=== PATIENT | male | born 1935 | race Caucasian/White ===

== ENCOUNTER 2018-10-10 20:23 | Inpatient (IN) ==
--- NOTE | 2018-10-10 22:03 | Diag Imaging Result Doc PS360 ---
EXAM: CT HEAD W/O CONTRAST 10/10/2018 HISTORY: possible seizure TECHNIQUE: This exam was performed using automated exposure control, adjustment of mA or kV according to patient size, and/or use of iterative reconstruction technique. COMMENT: There are patchy lucencies in both hemispheres in the periventricular and subcortical white matter. There is no evidence of mass effect bleed or abnormal extra-axial fluid collection. Compared to the previous study of 11/20/2015 the appearance the brain is similar. The visualized paranasal sinuses are clear. The calvarium is intact. IMPRESSION: No acute intracranial disease. Chronic ischemic microvascular white matter disease. Electronically signed by Gareth Cortez 10/10/2018 10:00 PM
[2018-10-10] MEDS ORDERED: APRESOLINE IV ONE (22:06)
--- NOTE | 2018-10-10 22:20 | Diag Imaging Result Doc PS360 ---
EXAM: CT ABDOMEN/PELVIS W/O CONTRAST 10/10/2018 HISTORY: distension TECHNIQUE: This exam was performed using automated exposure control, adjustment of mA or kV according to patient size, and/or use of iterative reconstruction technique. COMMENT: There are no previous abdominal studies available for comparison. Where possible, the examination is compared with the previous CT of the chest dated 01/18/2015. There are platelike opacities in the inferior lingula and both lower lobes with some air bronchograms and bronchiectasis present particularly in the left posterior costophrenic sulcus. These findings were largely present at the time the previous chest CT. There is massive gaseous dilatation of the colon. There is a large amount of stool present in the right colon. There may be multiple polypoid mucosal lesions present in the colon. This was apparent on the previous chest CT as well as the gaseous dilatation and constipation in as much as the upper abdomen was included on the study. There is a 2 mm calculus in the lower pole of the left kidney. There is no evidence of nephrolithiasis on the right. There is some fullness of the left collecting system and there is a cortical cyst present in the upper pole. This was present on the previous study. There is no apparent ureteral stone. The prostate is enlarged. The urinary bladder is not distended. There is no evidence of free fluid. The small bowel is not distended. Some gas and stool is present in the colon. There is a diverticulum arising from the right dome of the bladder. The appendix is not clearly identified but there is no evidence of appendicitis. There has been internal fixation of the left femur. There are some degenerative disc changes in the lumbar spine. IMPRESSION: Chronic constipation and gaseous dilatation of the colon. The possibility of colonic polyposis cannot be excluded. Electronically signed by Gareth Cortez 10/10/2018 10:18 PM
[2018-10-10 22:47] LABS: URINE SOURCE CLEAN CATCH
[2018-10-10 22:53] LABS: BASO# 0.07 X1000 (0.0-0.2); EOS# 0.16 X1000 (0.0-0.7); EOS% 2.2 % (0.0-10.0); HEMATOCRIT 46.7 % (42.0-52.0); HEMOGLOBIN 14.9 g/dL (14.0-18.0); IMM GRAN# 0.02 X1000 (0.0-0.04); IMM GRAN% 0.3 % (0.0-0.5); LYMPH# 0.91 X1000 (1.2-3.4); LYMPH% 12.7 % (20.5-51.1); MCH 29.7 PG (27-31); MCHC 31.9 g/dL (33-37); MCV 93.2 FL (81-99); MONO# 0.57 X1000 (0.11-0.59); MONO% 7.9 % (1.7-9.3); MPV 11.8 FL (7.4-10.4); NEUT# 5.45 X1000 (1.4-6.5); NEUT% 75.9 % (42.2-75.2); PLT 116 X1000 (130-400); RBC 5.01 XMIL (4.7-6.1); RDW 14.5 % (11.5-14.5); WBC 7.18 X1000 (4.8-10.8)
[2018-10-10 22:55] LABS: BILIRUBIN URINE NEGATIVE (NEGATIVE); BLOOD URINE NEGATIVE (NEGATIVE); COLOR STRAW; GLUCOSE URINE NEGATIVE (NEGATIVE); KETONE URINE NEGATIVE (NEGATIVE); LEUKOCYTES URINE NEGATIVE (NEGATIVE); NITRITE URINE NEGATIVE (NEGATIVE); PH URINE 6.5; PROTEIN URINE NEGATIVE (NEGATIVE); TURBIDITY URINE CLEAR (CLEAR); UROBILINOGEN URINE NORMAL (NORMAL)
[2018-10-10 22:56] LABS: UR EPITHELIAL CELLS <10 /HPF (<10); URINE BACTERIA NEGATIVE /HPF; URINE RBC <10 /HPF (<10); URINE WBC <10 /HPF (<10)
[2018-10-10 23:07] LABS: AGAP 12; ALB/GLOB RATIO 1.4; ALBUMIN 3.9 g/dL (3.5-5.0); ALKALINE PHOSPHATASE 76 U/L (32-122); BUN 18 mg/dL (8-22); CALCIUM 8.7 mg/dL (8.8-10.2); CHLORIDE 102 mmol/L (98-107); COSMO 288; CREATININE 0.9 mg/dL (0.7-1.2); ESTIMATED GFR > 60; GLUCOSE 82 mg/dL (70-104); GOT 15 U/L (10-34); GPT < 5 U/L (10-44); POTASSIUM 3.9 mmol/L (3.5-5.1); SODIUM 144 mmol/L (136-145); TCO2 30 mmol/L (25-35); TOTAL BILIRUBIN 0.35 mg/dL (0.20-1.00); TOTAL PROTEIN 6.6 g/dL (6.3-8.3)
--- NOTE | 2018-10-10 23:50 | PROVIDER DOCUMENTATION ---
This chart was entered by Mary Sainz Scribe, acting as scribe for Tejas Sarkar MD. HPI-Neurological Disorder - General Chief Complaint: Seizure Stated Complaint: POSS SEIZURE Time Seen by Provider: 10/10/18 20:52 Source: patient, family Allergies/Adverse Reactions: Patient Allergies Allergy/AdvReac Type Severity Reaction Status Date / Time tetanus and diphtheria Allergy ANAPHYLAXIS Verified 10/11/18 00:14 toxoids [tetanus & diphtheria toxoids] Home Medications: Home Medication List Medication Instructions Recorded Confirmed Last Taken Type Carbidopa/Levodopa [Carbidopa-Levo 1 tab PO DIRECTED 01/18/15 10/11/18 11/20/15 16:30 History 25-100 Tab] Losartan/Hctz [Hyzaar 50/12.5 mg] 1 each PO DAILY PRN 01/18/15 10/11/18 11/20/15 08:00 History Carbidopa/Levodopa [Sinemet 25/100] 2 each PO 0600 #0 tablet 04/15/15 10/11/18 11/20/15 06:00 Rx Carbidopa/Levodopa [Sinemet 25/100] 1 each PO WLUNCH 11/20/15 10/11/18 11/20/15 11:00 History Omeprazole [Prilosec] 1 cap PO QAM 10/11/18 10/11/18 Unknown History Simethicone [Gas-X] 1 cap PO AC 10/11/18 10/11/18 Unknown History Solifenacin [Vesicare] 1 tab PO QAM 10/11/18 10/11/18 Unknown History - History of Present Illness-Neuro Nature of Presenting Problem: 83 yom presents to ED by way of EMS for 'seizure type' activity that happened just prior to EMS being called. Pt has HX of Parkinsons, TIA and HTN. Pt daughter and at bedside and states while he was sitting and talking to , his arms started shaking more than normal. Pt denies 0 LOC. EMS states pt was alert and oriented when they arrived. Pt b/p is 221/130 upon exan and he has a distended abdomen but denies pain. Review of Systems - Adult - REVIEW OF SYSTEMS - ADULT Constitutional: reports: see HPI. denies: chills, fever Eyes: reports: no symptoms reported Ears, Nose, Mouth & Throat: reports: no symptoms reported Cardiovascular: reports: no symptoms reported Respiratory: reports: no symptoms reported Gastrointestinal: reports: no symptoms reported Genitourinary: reports: no symptoms reported Musculoskeletal: reports: no symptoms reported Integumentary: reports: no symptoms reported Neurological: reports: see HPI, seizure (arms were shaking more than normal), tremors Psychiatric: reports: no symptoms reported Endocrine: reports: no symptoms reported Hematologic/Lymphatic: reports: no symptoms reported Allergic/Immunologic: reports: no symptoms reported All Other Systems: Reviewed and Negative Past History - Adult - PAST MEDICAL HISTORY-ADULT Review of Records: reports: Old Records Reviewed, Nursing Assessment Review, Medications Reviewed, Social history reviewed & non-contributory. 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), Parkinson's, TIA Psychiatric: reports: denies history Endocrine/Immune: reports: denies history Other Conditions: reports: skin disorder (Cancer) - PRIOR SURGERIES/PROCEDURES Surgical/Procedure History: reports: appendectomy, cholecystectomy (TURP, cataract removal,), tonsillectomy, hernia repair, orthopedic (extremity) (ORIF right ankle), other (TURP, cataract removal) - PRIOR HOSPITALIZATIONS Prior Hospitalizations: reports: for other non-related - IMMUNIZATION STATUS Childhood Immunizations: See Nurse Assessment Flu Vaccine: See Nurse Assessment - FAMILY HISTORY Family History: reviewed, not pertinent Physical Exam- Neurological - Physical Exam-Neuro Initial Vital Signs Reviewed: Yes General Appearance: appears well, alert, no apparent distress. negative: anxious, combative Eye Exam: bilateral eye: normal inspection, PERRL HENMT: normocephalic/atraumatic, moist mucous membranes. negative: frontal tenderness, maxillary tenderness Head Injury: no evidence of injury. negative: active bleeding Neck: non-tender, supple Respiratory: chest non-tender, lungs clear, normal breath sounds. 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 negative: abnormal speech, facial droop, facial weakness Integumentary: normal color, normal turgor, warm/dry Psych/Mental Status: normal mood/affect, normal thought content Progress - PLAN OF CARE/RESULTS Progress/Plan/Lab Results: Vital Signs - 8 hr 10/10/18 20:53 10/10/18 20:56 10/10/18 21:02 Temperature 98.5 F Pulse Rate 91 H 92 H 88 Respiratory Rate 17 18 18 Blood Pressure 221/130 221/130 215/146 O2 Sat by Pulse Oximetry 96 100 10/10/18 21:17 10/10/18 21:40 10/10/18 21:47 Temperature Pulse Rate 81 75 77 Respiratory Rate 14 16 19 Blood Pressure 181/123 180/110 183/113 O2 Sat by Pulse Oximetry 96 95 95 10/10/18 22:02 10/10/18 22:17 10/10/18 22:32 Temperature Pulse Rate 71 86 84 Respiratory Rate 17 16 20 Blood Pressure 192/111 193/120 174/114 O2 Sat by Pulse Oximetry 95 94 L 95 10/10/18 22:47 10/10/18 22:51 Temperature Pulse Rate 88 79 Respiratory Rate 21 16 Blood Pressure 194/102 146/107 O2 Sat by Pulse Oximetry 93 L 95 Laboratory Results - last 24 hr 10/10/18 10/10/18 10/10/18 21:00 21:00 22:30 WBC 7.18 RBC 5.01 Hgb 14.9 Hct 46.7 MCV 93.2 MCH 29.7 MCHC 31.9 L RDW Std Deviation 14.5 Plt Count 116 L MPV 11.8 H Immature Gran % (Auto) 0.3 Neut % (Auto) 75.9 H Lymph % (Auto) 12.7 L Dickinson % (Auto) 7.9 Eos % (Auto) 2.2 Baso % (Auto) 1.0 H Immature Gran # (Auto) 0.02 Neut # (Auto) 5.45 Lymph # (Auto) 0.91 L Dickinson # (Auto) 0.57 Eos # (Auto) 0.16 Baso # (Auto) 0.07 Sodium 144 Potassium 3.9 Chloride 102 Carbon Dioxide 30 Anion Gap 12 BUN 18 Creatinine 0.9 Estimated GFR/1.73 m2 > 60 BUN/Creatinine Ratio 20 Glucose 82 Calculated Osmolality 288 Calcium 8.7 L Total Bilirubin 0.35 AST 15 ALT < 5 L Alkaline Phosphatase 76 Total Protein 6.6 Albumin 3.9 Globulin 2.7 Albumin/Globulin Ratio 1.4 Urine Source CLEAN CATCH Urine Color STRAW Urine Turbidity CLEAR Urine pH 6.5 Ur Specific Sandwich 1.000 Urine Protein NEGATIVE Ur Glucose (Stick) NEGATIVE Ur Ketones (Stick) NEGATIVE Urine Blood NEGATIVE Urine Nitrite NEGATIVE Urine Bilirubin NEGATIVE Urobilinogen Dipstick NORMAL Urine Leukocytes NEGATIVE Urine WBC (Auto) <10 Urine RBC (Auto) <10 U Epithel Cells (Auto) <10 Urine Bacteria (Auto) NEGATIVE Orders Category Date Time Status Admit - [facility] Routine AdmDCTranf 10/11/18 00:05 Active Activity - Strict Bedrest ORDERED Care 10/11/18 00:05 Active Apply Mechanical Device [QM] ORDERED Care 10/11/18 00:05 Active Intake and Output-Strict ORDERED Care 10/11/18 00:05 Active Update & Confirm Home Medicati ROUTINE Care 10/11/18 00:07 Active Vital Signs Order Q 8-HR ASSESS Care 10/11/18 00:05 Active Z-Document. for Tele Applied ORDERED Care 10/11/18 00:06 Active NPO Diet 10/11/18 00:[address] ABDOMEN/PELVIS W/O CONTRAST [CT] Stat Exams 10/10/18 21:[address] HEAD W/O CONTRAST [CT] Stat Exams 10/10/18 20:53 Completed BASIC METABOLIC PANEL [CHEM] Routine Lab 10/11/18 06:00 Uncollected CBC WITH ELECTRONIC DIFF [HEME] Stat Lab 10/10/18 21:00 Completed COMPREHENSIVE METABOLIC PANEL [CHEM] Stat Lab 10/10/18 21:00 Completed TSH Routine Lab 10/11/18 06:00 Uncollected URINALYSIS [URINALYSIS] Stat Lab 10/10/18 22:30 Completed Acetaminophen [Tylenol] Med 10/11/18 00:05 Active 650 mg PO Q6H PRN PRN Hydralazine [Apresoline] Med 10/10/18 22:06 Discontinued 10 mg IV NOW ONE Hydralazine [Apresoline] Med 10/11/18 00:08 Active 10 mg IV Q6H PRN PRN Ondansetron [Zofran] Med 10/11/18 00:05 Active 4 mg IV Q4H PRN PRN Telemetry [OM.EQ] Routine Oth 10/11/18 00:05 Active EKG [EKG] Routine Ther 10/11/18 08:00 Ordered EKG [EKG] Stat Ther 10/10/18 20:53 Ordered Transfer/Admit Order [TRANSFER] Routine Transfer 10/11/18 00:09 Ordered At recheck pt noted that he was feeling better and agreed to be admitted. Result Diagrams: 10/10/18 21:00 10/10/18 21:00 - CT/MRI 1 CT Study: Head Impression: See EMR Report ( EXAM: CT HEAD W/O CONTRAST 10/10/2018 HISTORY: possible seizure TECHNIQUE: This exam was performed using automated exposure control, adjustment of mA or kV according to patient size, and/or use of iterative reconstruction technique. COMMENT: There are patchy lucencies in both hemispheres in the periventricular and subcortical white matter. There is no evidence of mass effect bleed or abnormal extra-axial fluid collection. Compared to the previous study of 11/20/2015 the appearance the brain is similar. The visualized paranasal sinuses are clear. The calvarium is intact. IMPRESSION: No acute intracranial disease. Chronic ischemic microvascular white matter disease. Electronically signed by Gareth Cortez 10/10/2018 10:00 PM 10/10/182199 Interpreting Physician: Gareth Cortez MD Dictated Date/Time: 10/10/182158 cc: Tejas Sarkar MD; Sabino Kwong MD) 2 CT Study: Abdomen, Pelvis Impression: See EMR Report ( EXAM: CT ABDOMEN/PELVIS W/O CONTRAST 10/10/2018 HISTORY: distension TECHNIQUE: This exam was performed using automated exposure control, adjustment of mA or kV according to patient size, and/or use of iterative reconstruction technique. COMMENT: There are no previous abdominal studies available for comparison. Where possible, the examination is compared with the previous CT of the chest dated 01/18/2015. There are platelike opacities in the inferior lingula and both lower lobes with some air bronchograms and bronchiectasis present particularly in the left posterior costophrenic sulcus. These findings were largely present at the time the previous chest CT. There is massive gaseous dilatation of the colon. There is a large amount of stool present in the right colon. There may be multiple polypoid mucosal lesions present in the colon. This was apparent on the previous chest CT as well as the gaseous dilatation and constipation in as much as the upper abdomen was included on the study. There is a 2 mm calculus in the lower pole of the left kidney. There is no evidence of nephrolithiasis on the right. There is some fullness of the left collecting system and there is a cortical cyst present in the upper pole. This was present on the previous study. There is no apparent ureteral stone. The prostate is enlarged. The urinary bladder is not distended. There is no evidence of free fluid. The small bowel is not distended. Some gas and stool is present in the colon. There is a diverticulum arising fr om the right dome of the bladder. The appendix is not clearly identified but there is no evidence of appendicitis. There has been internal fixation of the left femur. There are some degenerative disc changes in the lumbar spine. IMPRESSION: Chronic constipation and gaseous dilatation of the colon. The possibility of colonic polyposis cannot be excluded. Electronically signed by Gareth Cortez 10/10/2018 10:18 PM 10/10/182217 Interpreting Physician: Gareth Cortez MD Dictated Date/Time: 10/10/182207 cc: Tejas Sarkar MD; Sabino Kwong MD) Departure - Departure Date of Disposition Decision: 10/10/18 Time of Disposition Decision: 00:01 DIAGNOSIS: Seizures, Hypertension Disposition: ADMITTED INPATIENT 09 Certified Medical Emergency: Emergent Condition: Stable - Critical Care Note This patient required my direct & personal management of CC.: No Attestation - Physician/ PATY Attestation Patient care was provided by Advanced Practice Provider:: No The physician spent face to face time with patient:: Yes Advanced Practice Provider documentation review:: Supervising physician onsite and consulted in the evaluation and care of this patient. The physician did have a face to face encounter with the patient. - NIH Stroke Scale Level of Consciousness: 0-Alert LOC Questions (ask month and age): 0-Answers Both Correctly LOC Commands (ask to open & close eyes;make a fist, let go): 0-Obeys Both Correctly Best Gaze (horizontal eye movement): 0-Normal Visual (use finger movement, counting or visual threat): 0-No Visual Loss Facial Palsy (show teeth or raise eyebrows & close eyes tght: 0-Symmetrical Movement Motor Function-left arm: 0-Normal Motor Function-right arm: 0-Normal Motor Function-left le-Normal Motor Function-right le-Normal Limb Ataxia(eqvfdm-grei-iencjy, or heel to peña): 0-No Ataxia Sensory(pin prick to face,arms,trunk,legs-compare side/side): 0-No Ataxia Best Language(name item/read sentence.Ex-Down to Earth): 0-No Aphasia Dysarthria(Pt read words or say words Ex.Mama,Tip-Top,Thanks: 0-Normal Articulation Extinction and Inattention: 0-Normal Modified Hendry Score Criteria: 0-no symptoms This chart was documented by the indicated scribe, (Mary Sainz, Scribe) and accurately reflects the services I performed and decisions made by me, Tejas Sarkar MD, as attested by the provider's signature.
[2018-10-11] MEDS ORDERED: ZOFRAN IV PRN (00:05)
[2018-10-11] MEDS ORDERED: TYLENOL PO PRN (00:05)
[2018-10-11] MEDS ORDERED: DULCOLAX PR ONE (01:57)
[2018-10-11] MEDS ORDERED: HYZAAR 50/12.5 MG PO PRN (04:33)
[2018-10-11] MEDS ORDERED: SINEMET 25/100 PO SCH (04:45)
--- NOTE | 2018-10-11 05:29 | HISTORY AND PHYSICAL ---
PRIMARY CARE PROVIDER: Sabino Kwong. CHIEF COMPLAINT: Seizure-like activity. HISTORY OF PRESENT ILLNESS: Mr. Ca is an 83-year-old male with a longstanding history of advancing Parkinson's disease. I believe he was diagnosed around 14 years ago as well as cerebral ataxia, hyperlipidemia, hypertension, previous TIAs and CVAs. Tonight, he was at home. His and daughter were at bedside. He was talking to them. Apparently, his arms started shaking more than normal. He never lost consciousness. He does not have loss of bowel or bladder. On arrival by EMS a few minutes later, the patient was alert and oriented times 3. However, he was hypertensive and he was brought into the emergency room. On arrival to the emergency room, no additional seizure-type activity was noted by the ER. CT of his head and abdomen were grossly normal I believe showing chronic white matter disease and chronic constipation. However, on arrival the patient's blood pressure was elevated at 221/130. He was given 10 mg of hydralazine. His blood pressure came back within normal limits. As noted, he had no additional seizure-type activity. He will be admitted in observation status for further evaluation and treatment. PAST MEDICAL HISTORY: Pernicious anemia, essential hypertension, hyperlipidemia and Parkinson's. PREVIOUS SURGICAL HISTORY: Appendectomy, cholecystectomy, TURP, tonsillectomy, cataract removal, hernia repair, ORIF of right ankle. SOCIAL HISTORY: , lives with . Daughter is a registered nurse. No alcohol, tobacco or illicit drugs. 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 ALLERGIES: Tetanus and diphtheria toxoid. HOME MEDICATIONS: 1. Hyzaar 50/12.5 mg. 2. Carbidopa/levodopa 25/100 two tablets at breakfast and 1 tablet at lunch. 3. Simethicone 1 daily. 4. VESIcare 1 tablet p.o. q.a.m. 5. Prilosec 20 mg 1 p.o. q.a.m. REVIEW OF SYSTEMS: Fourteen point review of systems conducted with the patient. Pertinent positives listed above in the HPI. All other systems reviewed and found to be negative. PHYSICAL EXAMINATION: VITAL SIGNS: Temperature 98.5, pulse 79, respirations 16, blood pressure 146/107, oxygen saturation 96% on room air. GENERAL: An 83-year-old male lying in the ER stretcher in no acute distress. HEENT: Head is atraumatic, normocephalic. Pupils equal, round, reactive to light. Extraocular eye movement intact. Oral mucosa is moist. NECK: Supple. No JVD. Trachea is midline. CARDIAC: S1, S2 appreciated. No murmurs, gallops, or rubs. LUNGS: Clear to auscultation bilaterally. No rhonchi, wheezes, rales. Symmetric rise and fall with respiration. ABDOMEN: Soft, slightly distended, nontender. Bowel sounds hypoactive all 4 quadrants. No pulsatile mass. No organomegaly. EXTREMITIES: No clubbing, cyanosis, or edema. Two-plus pedal pulses. GENITOURINARY: No bladder distention. Patient voids. NEUROLOGICAL: Tremors in bilateral upper extremities with noted pill-rolling type tremor, appears to be greater on the right. Facial expressions are symmetrical and alert and oriented times 3. Cranial nerves II through XII appear to be grossly intact. DIAGNOSTIC DATA: CT of the head shows chronic ischemic microvascular white matter disease. CT of the abdomen and pelvis shows chronic constipation and gaseous distention. LABORATORY DATA: CBC and CMP within normal limits. Urine unremarkable. ASSESSMENT AND PLAN: 1. Progressive Parkinson's. Patient's family felt as if he were having seizure- like activity related to increased jerking movement in bilateral arms. He has had no increased activity since his arrival at the ER. He will be placed on observation status. We will not treat for seizures at this moment as it appears to be more related to progressive disease. We will defer to Dr. Kwong, his primary care provider, this morning. We will continue his Sinemet. 2. Questionable seizure. Again, see above. Do not believe that this was seizure-type activity. He did not have any type of postictal phase, loss of bowel or bladder and maintained conversation from what I understand. Just had increased movement of his arms. 3. Hypertension. We will give hydralazine 10 mg IV q.6 hours p.r.n. Continue his Hyzaar. 4. Chronic constipation. We will continue his Gas-X for gaseous distention. We will give a Dulcolax suppository. Further recommendations per patient clinical course. Dictated by JENNIE Dykes for Juvenal Alexandre MD I have performed a face to face diagnostic evaluation. Labs/ xrays reviewed. Exam Neuro- sluggish A/P- Possible seizures, Parkinsons- Admit, seizure precautions, Neurology consult. Dr. Alexandre cc: JENNIE Dykes MD Russell T. Barr, MD MTDD
[2018-10-11] MEDS: MYLICON PO SCH ×4 (06:02→16:35)
[2018-10-11] MEDS: PRILOSEC PO SCH (06:03)
[2018-10-11] MEDS: SINEMET 25/100 PO SCH ×5 (06:03→21:58)
[2018-10-11 07:11] LABS: AGAP 9; BUN 15 mg/dL (8-22); CALCIUM 9.5 mg/dL (8.8-10.2); CHLORIDE 103 mmol/L (98-107); COSMO 287; CREATININE 0.8 mg/dL (0.7-1.2); ESTIMATED GFR > 60; GLUCOSE 95 mg/dL (70-104); POTASSIUM 3.8 mmol/L (3.5-5.1); SODIUM 144 mmol/L (136-145); TCO2 32 mmol/L (25-35)
[2018-10-11] MEDS: VESICARE PO SCH (09:04)
--- NOTE | 2018-10-11 15:11 | PROGRESS NOTE ---
DATE: 10/11/2018 HISTORY OF PRESENT ILLNESS: Mr. Ca was admitted to [facility] with what sounds like a focal motor seizure. He has had no further seizure activity since admission. A CT scan of the brain demonstrated chronic white matter changes. He had no obvious electrolyte abnormalities. He does have a longstanding history of Parkinson's. He takes Sinemet multiple times per day. The family is concerned that he is not getting his medicines in a timely manner. PHYSICAL EXAMINATION: Vital Signs: Temperature 98.1 degrees, pulse 66, respirations 20, BP 123/83. Cardiovascular: Regular rate and rhythm. Lungs: Clear. Abdomen: Soft, nontender, with active bowel sounds. ASSESSMENT AND PLAN: 1. Suspected focal motor seizure. He has had no further seizure activity. We cannot find any reversible causes of a seizure. His CT is unremarkable. We will arrange for an EEG. If the EEG is consistent with seizure activity, we certainly can begin medications like Keppra. If the EEG is normal, I do not believe that we need to start seizure medicines unless he has additional seizure activity. 2. Parkinson's disease. I have discussed various options with the family on how to best to ensure that Mr. Ca gets his Sinemet in a timely manner. We will provide the family with his total daily dose of Sinemet and they will administer the Sinemet to Mr. Ca. cc: MD Sabino Mckeon MD
[2018-10-12] MEDS: APRESOLINE IV PRN (05:12)
[2018-10-12] MEDS: SINEMET 25/100 PO SCH ×5 (06:07→19:27)
[2018-10-12] MEDS: PRILOSEC PO SCH (06:08)
[2018-10-12] MEDS: MYLICON PO SCH ×3 (06:08→17:28)
[2018-10-12 06:34] LABS: HEMATOCRIT 43.8 % (42.0-52.0); HEMOGLOBIN 13.9 g/dL (14.0-18.0); MCH 30.3 PG (27-31); MCHC 31.7 g/dL (33-37); MCV 95.6 FL (81-99); MPV 11.7 FL (7.4-10.4); RBC 4.58 XMIL (4.7-6.1); RDW 14.9 % (11.5-14.5)
[2018-10-12 06:42] LABS: AGAP 9; BUN 19 mg/dL (8-22); CHLORIDE 103 mmol/L (98-107); COSMO 290; CREATININE 1.1 mg/dL (0.7-1.2); ESTIMATED GFR > 60; GLUCOSE 86 mg/dL (70-104); POTASSIUM 3.8 mmol/L (3.5-5.1); SODIUM 145 mmol/L (136-145); TCO2 33 mmol/L (25-35)
[2018-10-12] MEDS: VESICARE PO SCH (08:21)
--- NOTE | 2018-10-12 11:21 | PROGRESS NOTE ---
DATE: 10/12/2018 SUBJECTIVE: Mr. Fuller was admitted to [facility] with suspected seizure activity. He had a witnessed seizure. Electrolytes have been within normal limits. A CT scan of the brain demonstrated chronic white matter changes. He has had no further seizure activity. His blood pressure has been fluctuating. He has had low blood pressure readings. He has had an isolated blood pressure reading of 221/111. He denies any chest pain, palpitations, or anginal equivalents. OBJECTIVE: Vitals: Temperature 97.9 degrees, pulse 51, respirations 20, blood pressure 95/50. CARDIOVASCULAR: Regular rate and rhythm. Lungs: Clear. Abdomen: Soft, nontender, with active bowel sounds. LABORATORIES: Various laboratory studies were obtained. A CBC demonstrated a white count of 5, hemoglobin 13.9, hematocrit 43.8, and a platelet count of a 111,000. Electrolytes demonstrated the following: Sodium 145, potassium 3.8, chloride 103, CO2 33, BUN 19, creatinine 1.1 and glucose 86. ASSESSMENT AND PLAN: 1. Hypertension. His blood pressure has been low several times. I am going to hold the losartan HCT and monitor his blood pressure. If he were to have any more elevated blood pressure readings, we will use hydralazine on a p.r.n. basis. Once his blood pressure normalizes and he is no longer having periods of hypotension, I will most likely just resume losartan as opposed to losartan HCT. 2. Suspected seizure activity. I am not sure whether this is just a focal seizure or whether he has a true seizure disorder. I have arranged for an EEG in the morning. If the EEG is abnormal, then we will began antiseizure medications. If the EGD is negative for seizure activity, I do not believe that we would need to treat him for seizures based on one solitary seizure. Given his fluctuating blood pressure and his comorbid conditions, I do not believe that it is safe for him to go home today. I believe further adjustment of his medicines in the hospital setting would be appropriate. I anticipate that he will be in the hospital for at least 2 midnights and I will therefore place him in inpatient status with observation services. cc: MD Sabino Mckeon MD
[2018-10-12] MEDS ORDERED: FLEET ENEMA PR ONE (18:48)
[2018-10-13] MEDS: APRESOLINE IV PRN ×2 (04:32→11:52)
[2018-10-13] MEDS: PRILOSEC PO SCH (06:03)
[2018-10-13] MEDS: MYLICON PO SCH ×2 (06:05→11:54)
[2018-10-13] MEDS: SINEMET 25/100 PO SCH ×3 (06:39→14:59)
--- NOTE | 2018-10-13 06:53 | EKG Report ---
Test Performed on : 10/11/2018 06:21:34 AM Test Reason : chest pain Blood Pressure : / mmHG Vent. Rate : 070 BPM Atrial Rate : 070 BPM P-R Int : 174 ms QRS Dur : 084 ms QT Int : 394 ms P-R-T Axes : 026 005 -08 degrees QTc Int : 425 ms Normal sinus rhythm. Minimal voltage criteria for LVH, may be normal variant Inferior infarct (cited on or before 11-OCT-2018) Possible Anterior infarct , age undetermined Abnormal ECG When compared with ECG of 11-OCT-2018 01:33, (Unconfirmed) No significant change was found Unconfirmed Result
--- NOTE | 2018-10-13 07:19 | EKG Report ---
Test Performed on : 10/11/2018 01:33:01 AM Test Reason : possible seizure Blood Pressure : / mmHG Vent. Rate : 067 BPM Atrial Rate : 067 BPM P-R Int : 158 ms QRS Dur : 086 ms QT Int : 400 ms P-R-T Axes : 037 -02 -15 degrees QTc Int : 422 ms Normal sinus rhythm. Minimal voltage criteria for LVH, may be normal variant Inferior infarct , age undetermined Abnormal ECG When compared with ECG of 20-NOV-2015 19:47, No significant change was found Unconfirmed Result
[2018-10-13] MEDS: VESICARE PO SCH (09:00)
[2018-10-13] MEDS ORDERED: CATAPRES-TTS-2 TD SCH (13:00)
[2018-10-13] MEDS ORDERED: COZAAR PO SCH (13:00)
[2018-10-13 15:16] VITALS: BP 143/77
--- NOTE | 2018-10-14 04:19 | DISCHARGE SUMMARY ---
ADMISSION DATE: 10/12/2018 DISCHARGE DATE: 10/13/2018 DISCHARGE DIAGNOSES: 1. Solitary focal motor seizure. 2. Essential hypertension. 3. Parkinson disease. 4. Overactive bladder. 5. Gastroesophageal reflux disease. DISCHARGE INSTRUCTIONS: 1. Return to clinic in [address] Sabino Kwong in anticipation of a transition of care visit. 2. Healthy heart diet. 3. Activity as tolerated. DISCHARGE MEDICATIONS: 1. Losartan 50 mg daily. 2. Catapres TTS 2 patches 1 patch to the chest weekly. 3. Sinemet 25/100 two tablets at 6 a.m., 1 at lunch, and 1 at 2 p.m. and 2 at dinner. 4. VESIcare 5 mg daily. 5. Omeprazole 20 mg daily. 6. Simethicone 1 cap prior to each meal. DISCHARGE PHYSICAL EXAMINATION: General: This is an elderly 83-year-old gentleman in no apparent distress. Vital Signs: BP 143/77, pulse 59, respirations 19, temperature 97.8 degrees. Cardiovascular: Regular rate and rhythm. Lungs: Clear. Abdomen: Soft and nontender with active bowel sounds. HOSPITAL COURSE: Mr. Ca had a witnessed seizure, it sounded as if he had a focal motor seizure. He has had no previous history of seizure disorder. A workup was grossly unremarkable, he had no obvious electrolyte abnormalities. A CT scan of the brain was unremarkable. He had no further seizure activity. An EEG was grossly unremarkable. He had what appeared to be a solitary seizure, there is no obvious etiology. His EEG was normal. At this point in time I do not believe that he needs treatment with antiseizure medications. If he were not to have additional seizure activity then I would begin medications such as Keppra. He does have a longstanding history of hypertension. His blood pressure was quite labile, at times he had very elevated blood pressures and at other times his blood pressure was quite low. I have stopped the losartan HCT and continued losartan 50 mg daily. I also added a Catapres patch. It is my hope to keep his systolic blood pressures in the 140s and 150s as to avoid episodes of hypotension. He will follow up with Dr. Kwong as an outpatient in 1 week. cc: MD Sabino Mckeon MD
--- NOTE | 2018-10-14 13:10 | EEG REPORT ---
DATE: 10/13/2018 REFERRING PHYSICIAN: Dr. Cartwright. PROTEIN CHEMIST: Jossy Boone. BACKGROUND INFORMATION/TECHNIQUE: This is a digitally recorded routine EEG with video. HISTORY: An 83-year-old male with question of seizure. Apparently, he had a witnessed episode where he had some shaking of his arms more than usual. He did not lose consciousness. EEG is ordered to detect evidence of seizure. EEG FINDINGS: This is a technically limited EEG due to diffuse myogenic artifact. Brief 8.5 to 9 Hz posterior dominant alpha rhythm is seen symmetrically in the occipital regions. The anterior background consists of mixed alpha, beta, and rare theta range frequencies. No definite persistent focal slowing. No definite epileptiform discharges. No definite seizures. Hyperventilation was not performed. Photic stimulation does not alter the record. The patient becomes drowsy but stage II sleep is not seen. The EKG demonstrates regular intervals. IMPRESSION/CLINICAL CORRELATION: Borderline abnormal, technically limited, routine EEG due to very mild diffuse slowing suggestive of a mild nonspecific encephalopathy. No epileptiform discharges or seizures seen on the current study. This does not rule out an underlying seizure disorder. cc: MD Naomy East MD Russell T. Barr, MD
== END 2018-10-13 17:14 | disposition home health service (06) | DRG 101 ==
LOC: ED 20:23 → SUATTDRO 10-11 00:47 → INTOOBSV 10-11 00:47 → 3N 10-11 00:47
PROVIDERS: ADMIT Internal Medicine; ATTEND Internal Medicine
CPT/HCPCS: 70450; 74176; 80048; 80053; 81001; 84443; 85025; 85027; 93005; 93010; 95816; 96374; 99285; A9270; J0360